=== PATIENT | female | born 1955 | race Caucasian/White ===

== ENCOUNTER 2018-11-13 20:02 | Emergency (ER) | payer BC, SELFPAY ==
[2018-11-13 20:03] VITALS: BP 99/69; PULSE 84; RESP 14; TEMP 37.2; O2SAT 95; BMI 25.7
--- NOTE | 2018-11-13 20:23 | RAD_ITS ---
STUDY: X-RAY CHEST REASON FOR EXAM: Female, 63 years old. Femur. TECHNIQUE: Frontal and lateral views of the chest. COMPARISON: None. FINDINGS: The lungs are clear and expanded. There is no demonstrated pleural abnormality. Normal size heart. Normal mediastinum and tania. Normal visualized pulmonary arteries. Normal visualized aortic arch and descending thoracic aorta. There are diffuse degenerative changes of the visualized thoracic spine. Normal visualized ribs, clavicles, and shoulders. There is no demonstrated abnormality of the visualized soft tissue structures of the upper abdomen. RAD/Chest PA and Lateral IMPRESSION: No acute cardiopulmonary process. Electronically Signed: Lyudmila Engle MD at 21:28 EDT Tel , Service support ,
--- NOTE | 2018-11-13 20:26 | ED.VISSUMM ---
- ER Visit Summary Date of Service: 11/13/18 Chief Complaint: Fever History of Present Illness: The patient is a 63 F with fever for the past 3 days. Temperature was up to 103 before leaving her house today. She states she is only to sleep more than normal but she has no other complaints. She was seen at [facility] and was sent to the ED. Urinalysis and rapid strep there were unremarkable. Physical Examination: Blood pressure is 99/69, temperature 99, heart rate 84, respiratory rate 14, pulse ox 95% on room air. Patient sitting upright in bed no acute distress. Head neck examination is unremarkable. There is no meningismus. Heart is regular rate and rhythm. Lung sounds are clear. Abdomen is soft and nontender. Neuro exam is normal. Test Results: CBC was a white count of 2.5 with unremarkable differential. Platelet count is low at 101,000. Chemistry studies unremarkable. [place] screen is negative. Influenza swab negative. Two-view chest x-ray is normal. Patient had rapid strep and a urinalysis at urgent care that were unremarkable. Emergency Department Course and Treatment: Patient was given IV fluids here. On repeat evaluation she is resting comfortably but easily awakens. She denies any symptoms. Blood cultures were sent and she will be advised to the prelim report will be available on these tomorrow. If she worsens in any way she is to return for repeat evaluation. Treatment Plan: [] Disposition: Discharge Impression: Fever, uncertain etiology This note was generated with [employer] dictation software. It may contain incorrect words, spelling, and punctuation that were not noted in review of the chart prior to signing ED Disposition - Plan for ED Patient: Disposition: Home or Assisted Living Instructions: ED Fever Unconf Cause Referrals: Trent Morrell MD [STAFF PHYSICIAN] - 1-2 Weeks
[2018-11-13] MEDS: 0.9% Normal Saline 1,000 ML 1000 ML IV (20:44)
[2018-11-13 20:52] VITALS: BP 109/61; RESP 16; O2SAT 94
[2018-11-13 21:13] LABS: Absolute Lymphocyte Count 0.58 X10^3/ul (0.83-4.51); Absolute Neutrophil Count 1.7 X10^3/uL (2.0-7.7); Hematocrit 40.3 % (37-47); Hemoglobin 13.5 g/dl (12.0-15.0); Lymphocyte # 0.58 X10^3/ul (4.0); Lymphocyte % 23.4 % (19-41); Mean Corp Hgb Conc 33.5 g/gl (32-36); Mean Corpuscular Hgb 29.7 pg (27.0-32.0); Mean Corpuscular Volume 88.6 fL (81-99); Mean Platelet Vol. 9.4 fl (6.2-12.0); Monocyte# 0.19 X10^3/uL; Monocyte% 7.7 % (0-10); Neutrophil % 68.5 % (47-70); Platelet Count 101 K/mm3 (150-450); RBC Distribution Width SD 41.9 fl (35.1-43.9); Red Blood Count 4.55 M/mm3 (4.2-5.4); White Blood Count 2.5 K/mm3 (4.4-11.0)
[2018-11-13 21:14] LABS: Differential Indicated SCAN CRITERIA MET; POSITIVE COUNT NO; POSITIVE DIFFERENTIAL YES; POSITIVE MORPHOLOGY NO
[2018-11-13 21:15] LABS: Anion Gap 6 (5-15); BUN 8 mg/dL (7-18); Calcium,Total 8.2 mg/dL (8.5-10.1); Chloride 103 mmol/L (98-107); EST Glomerular Filtration Rate 77 mL/min (>60); Est Glom Filt Rate - Afr Amer 94 mL/min (>60); Estimated Creatinine Clearance 66.45 ml/min; Glucose 98 mg/dL (74-106); Sodium Level 137 mmol/L (136-145)
[2018-11-13 21:45] LABS: Internal QC Validated? YES +Cl - CLEAR BKGD; Monotest Negative (Negative)
[2018-11-13] MEDS: 0.9% Normal Saline 1,000 ML 150 ML IV (22:02)
[2018-11-13 22:24] VITALS: BP 101/63; PULSE 73; RESP 16; O2SAT 98
[2018-11-14 13:19] LABS: Pathologist Review Reviewed
== END 2018-11-13 22:25 | disposition home or self-care (01) ==
PROVIDERS: Emergency Provider Emergency Medicine; Family Provider Obstetrics & Gynecology Gynecology; PCP Obstetrics & Gynecology Gynecology
DX: R50.9 Fever, unspecified (principal)
CPT/HCPCS: 36415; 71046; 80048; 85025; 86308; 87040; 87804; 96360; 99283; J7030

== ENCOUNTER 2020-10-04 11:10 | Emergency (ER) | payer BC, SELFPAY ==
[2020-10-04 11:11] VITALS: BP 154/51; PULSE 67; RESP 17; TEMP 36.8; O2SAT 97; BMI 24.1
--- NOTE | 2020-10-04 11:32 | RAD_ITS ---
STUDY: X-RAY - LEFT HAND REASON FOR EXAM: Female, 65 years old. fall last night, pain TECHNIQUE: 3 view(s) of the hand. COMPARISON: None. FINDINGS: Normal radiocarpal articulation. Normal distal radioulnar joint. Normal visualized carpal bones. Normal carpal articulations Normal carpometacarpal articulation of the thumb. Normal second through fifth carpometacarpal joints. Normal metacarpi. Normal metacarpophalangeal joint of the thumb. Normal interphalangeal joint of the thumb. Normal proximal and distal phalanges of the thumb. Normal metacarpophalangeal joints of the second through fifth fingers. Normal proximal and distal interphalangeal joints of the second through fifth fingers. Normal phalanges of the second through fifth fingers. The soft tissue structures are unremarkable. RAD/Hand Min 3 Views IMPRESSION: Normal x-ray examination of the hand. Electronically Signed: Nate Gillis MD at 12:45 EDT , Service support ,
--- NOTE | 2020-10-04 11:32 | RAD_ITS ---
STUDY: X-RAY - LEFT WRIST REASON FOR EXAM: Female, 65 years old. Fall last night, arm pain TECHNIQUE: 3 view(s) of the wrist were obtained. COMPARISON: None. FINDINGS: Normal visualized distal radius and ulna. Normal radiocarpal articulation. Normal distal radioulnar articulation. Normal carpal bones. Normal carpal articulations. There is degenerative arthrosis of the carpometacarpal articulation of the thumb. Normal second through fifth carpometacarpal articulations. Normal visualized metacarpal bones. The soft tissue structures are unremarkable. There is no demonstrated acute fracture. RAD/Wrist min 3 Views IMPRESSION: No definite acute or significant abnormality seen. Electronically Signed: Nate Gillis MD at 12:42 EDT , Service support ,
--- NOTE | 2020-10-04 11:32 | RAD_ITS ---
STUDY: X-RAY - LEFT ELBOW REASON FOR EXAM: Female, 65 years old. fall last night, pain TECHNIQUE: 4 view(s) of the elbow. COMPARISON: None. FINDINGS: There is no definite fracture or dislocation. However there is an elbow effusion which can be seen with occult fracture, often of the radial neck. Therefore suggest follow-up or CT scan. Otherwise grossly normal visualized humerus, radius and ulna. Normal radiocapitellar and ulnotrochlear articulations. RAD/Elbow min 3 Views IMPRESSION: No definite fracture or dislocation, however there is an elbow effusion which raises suspicion of occult nondisplaced fracture. Electronically Signed: Nate Gillis MD at 12:44 EDT , Service support ,
--- NOTE | 2020-10-04 11:41 | ED.DCSUM_ITS ---
- ER Visit Summary Date of Service: 10/04/20 Chief Complaint: Fall History of Present Illness: The patient is a 65 F presenting after fall. Patient was walking down a ramp yesterday and slipped and fell. She did not hit her head or lose consciousness. She is right-handed. She complains of persistent pain to her left elbow and wrist. Denies other injuries. Physical Examination: Vitals are stable. Patient is afebrile. Alert no acute distress. HEENT exam is unremarkable. Neck is nontender Lungs are clear and equal bilaterally. Heart is regular rate and rhythm. Abdomen is soft nontender nondistended. Extremities left elbow diffuse tenderness with painful range of motion. Mild left wrist tenderness. Neurovascularly intact Skin is warm and dry. No focal neurologic deficit. Remainder of exam is unremarkable. Emergency Department Course and Treatment: Left hand, wrist, and elbow x-rays read by myself and radiology show normal x-ray examination of the hand, no definite acute or significant abnormality seen in left wrist, and left elbow no definite fracture or dislocation, however there is an elbow effusion which raises suspicion of occult nondisplaced fracture. Patient declined [place] and was given Tylenol. She was given a sling. She is advised to follow-up with orthopedics. Advised return to the ED for worsening complaints. Disposition: Discharge home Impression: Status post mechanical fall, left elbow injury This note was generated with [employer] dictation software. It may contain incorrect words, spelling, and punctuation that were not noted in review of the chart prior to signing ED Disposition - Plan for ED Patient: Instructions: ED Radial Head Fracture Referrals: Анна Dawson DO [STAFF PHYSICIAN] - Kristen Amaral MD [Primary Care Provider] -
[2020-10-04] MEDS: Acetaminophen 500 MG Tablet 1000 MG PO (12:08)
--- NOTE | 2020-10-04 13:17 | ED.DEP ---
ED Disposition - Plan for ED Patient: Instructions: ED Radial Head Fracture Referrals: Kristen Amaral MD [Primary Care Provider] - Анна Dawson DO [STAFF PHYSICIAN] -
[2020-10-04 13:37] VITALS: PULSE 64; RESP 17; O2SAT 100
== END 2020-10-04 13:40 | disposition home or self-care (01) ==
LOC: ED 11:52
PROVIDERS: Emergency Provider Emergency Medicine; PCP Internal Medicine
DX: S59.902A Unspecified injury of left elbow, initial encounter (principal); M25.422 Effusion, left elbow; W01.0XXA Fall on same level from slipping, tripping and stumbling without subsequent striking against object, initial encounter; Y93.01 Activity, walking, marching and hiking; Y92.9 Unspecified place or not applicable
CPT/HCPCS: 73080; 73110; 73130; 99283